=== PATIENT | female | born 1970 ===

== ENCOUNTER 2018-05-13 09:29 | Outpatient (CLI) | payer OTHER ==
[~2018-05-13] VITALS: Ht 165.1 cm; Wt 63.5 kg
== END 2018-05-13 09:45 | disposition home or self-care (01) ==
LOC: OFIC 805 09:29
DX: H60.63 Unspecified chronic otitis externa, bilateral (principal); E04.1 Nontoxic single thyroid nodule; L98.9 Disorder of the skin and subcutaneous tissue, unspecified; M95.10 Cauliflower ear, unspecified ear

== ENCOUNTER 2018-05-30 09:26 | Outpatient (CLI) | payer OTHER ==
[~2018-05-30] VITALS: Ht 152.4 cm; Wt 63.5 kg
== END 2018-05-30 09:40 | disposition home or self-care (01) ==
LOC: OFIC 805 09:26
DX: M95.10 Cauliflower ear, unspecified ear (principal); L98.9 Disorder of the skin and subcutaneous tissue, unspecified; E04.1 Nontoxic single thyroid nodule

== ENCOUNTER 2018-07-01 09:11 | Outpatient (CLI) | payer OTHER ==
[~2018-07-01] VITALS: Ht 152.4 cm; Wt 63.5 kg
== END 2018-07-01 09:30 | disposition home or self-care (01) ==
LOC: OFIC 805 09:11
DX: L98.9 Disorder of the skin and subcutaneous tissue, unspecified (principal); H61.112 Acquired deformity of pinna, left ear

== ENCOUNTER 2018-09-05 08:22 | Outpatient (CLI) | payer OTHER | END 2018-09-05 08:40 | disposition home or self-care (01) | LOC: OFIC 805 08:22 | DX: H61.113 Acquired deformity of pinna, bilateral (principal); L98.9 Disorder of the skin and subcutaneous tissue, unspecified; H60.599 Other noninfective acute otitis externa, unspecified ear ==